=== PATIENT | male | born 1965 | race Caucasian/White ===

== ENCOUNTER 2023-10-31 18:21 | Emergency (ER) | payer OTHER, SELFPAY ==
[2023-10-31 18:21] VITALS: BP 141/79
--- NOTE | 2023-10-31 19:58 | ED.SKININJ ---
HPI-Injury
General
Chief Complaint: Bite
Time Seen by Provider: 10/31/23 19:35
Travel History
Have you had any contact with someone who has COVID-19?: No
Do you have any symptoms of coronavirus? Fever > 100 degrees, chills, cough, shortness of breath, sore throat, loss of taste or smell, muscle aches, or headache?: No
History of Present Illness-Injury
Initial Injury comments:
58-year-old male presents the emergency department for rabies postexposure prophylaxis. 6 days ago he found a bat in his home, denies any known bites. He took the bat to the [facility] however the bat was too decayed to perform
rabies testing. He was then advised to come to the hospital for rabies postexposure treatment
Review of Systems
Review of Systems
Allergies reviewed?: Yes
All Other Systems: ROS reviewed and negative except as documented in HPI and ROS
Phy Exam
Physical Exam
Physical Exam:
GEN: Well appearing, NAD, WDWN
HEENT: Oral mucosa moist, no scleral icterus
Cardiac: Regular rate
Lung: No respiratory distress, no tachypnea
MSK: No gross deformity or injuries
Skin: Good color, no pallor or jaundice, no rashes
Neuro: AO x3, moves all extremities freely
Psych: Calm, cooperative
Course
Orders/Labs/Results
Orders:
Orders
10/31/23 20:06
Rabies Immune Globulin/Pf [HyperRAB] 1,884 unit IM NOW STA
10/31/23 20:15
Rabies Vaccine (Pcec)/Pf [Rabavert Rabies Vacc W-Diluent] 2.5 unit IM .ONCE ONE
Vital Signs
Initial and Last Documented VS:
Initial Vital Signs
Temp Pulse Resp BP
98.1 F 72 18 141/79
10/31/23 18:21 10/31/23 18:21 10/31/23 18:21 10/31/23 18:21
Last Documented Vital Signs
Temp Pulse Resp BP
98.1 F 72 18 141/79
10/31/23 18:21 10/31/23 18:21 10/31/23 18:21 10/31/23 18:21
MDM/Problems Addressed
MDM/Problems Addressed:
Will initiate rabies postexposure prophylaxis
*Critical Care Note
Total Time (30-74mins, 75-104mins- exclusive of procedures): Not Applicable
ED Attending Note
-
Portions of this chart may have been created with voice recognition software.� Occasional wrong word or��sound alike� substitutions may have occurred due to the inherent limitations of voice recognition software.
Discharge Plan
Departure
Patient Disposition: Home (Routine Discharge)
Date of Disposition: 10/31/23
Time of Disposition: 19:58
Patient with high blood pressure during this ER visit?: No
Discharge Problem:
Need for post exposure prophylaxis for rabies
Instructions: Rabies
Prescriptions:
New
rabies vacc,human diploid (PF) 2.5 unit recon soln
1 ml IM ONCE Qty: 3 0RF
Rx Instructions:
Administer IM on 11/02, 11/06 and 11/13
Stand Alone Forms: Rabies Vaccine Post Exp Dosing
Interventions
Interventions:
*Risk Screen - Suicide Last Done: 10/31/23 21:23
*General Assessment Last Done: 10/31/23 21:23
*Neglect/Abuse Screening Last Done: 10/31/23 21:23
ED- Fall Risk Assessment Last Done: 10/31/23 21:23
*ED COVID-19 Vaccine History Last Done: 10/31/23 21:23
*Nursing Disposition Last Done: 10/31/23 21:23
ED-Skin Assessment Last Done: 10/31/23 19:56
Discharge Date and Time
Discharge Date/Time: 10/31/23 21:10
[2023-10-31] MEDS: HyperRAB 1884 UNIT IM (20:43)
[2023-10-31] MEDS: RABAVERT RABIES VACC W-DILUENT 2.5 UNIT IM (20:50)
== END 2023-10-31 21:10 | disposition home or self-care (01) ==
LOC: EMR 18:21
PROVIDERS: EMERGENCY PHYSICIAN Student in an Organized Health Care Education/Training Program
DX: Z20.3 Contact with and (suspected) exposure to rabies (principal); Z23 Encounter for immunization; Z29.14 Encounter for prophylactic rabies immune globulin
CPT/HCPCS: 99284; 96372; 90471; 90375; 90675

== ENCOUNTER 2023-11-07 09:19 | Outpatient (RCR) | payer OTHER, SELFPAY ==
[2023-11-03 11:20] VITALS: BP 129/66
[2023-11-03] MEDS: RABAVERT RABIES VACC W-DILUENT 2.5 UNIT IM (11:31)
[2023-11-07 09:25] VITALS: BP 124/65
[2023-11-07] MEDS: RABAVERT RABIES VACC W-DILUENT 2.5 UNIT IM (09:31)
== END 2023-11-07 14:02 | disposition home or self-care (01) ==
LOC: OID 09:19
PROVIDERS: ATTENDING PHYSICIAN Physician Assistant
DX: Z20.3 Contact with and (suspected) exposure to rabies (principal); Z23 Encounter for immunization
CPT/HCPCS: 90471; 90675

== ENCOUNTER 2023-11-14 10:13 | Outpatient (RCR) | payer OTHER, SELFPAY ==
[2023-11-14 10:31] VITALS: BP 131/76
[2023-11-14] MEDS: RABAVERT RABIES VACC W-DILUENT 2.5 UNIT IM (10:32)
== END 2023-11-15 11:40 | disposition home or self-care (01) ==
LOC: OID 10:13
PROVIDERS: ATTENDING PHYSICIAN Physician Assistant
DX: Z20.3 Contact with and (suspected) exposure to rabies (principal); Z23 Encounter for immunization
CPT/HCPCS: 90471; 90675